=== PATIENT | male | born 1950 | race Caucasian/White ===

== ENCOUNTER 2024-02-26 10:41 | Emergency (ER) | payer MEDICARE, OTHER ==
[2024-02-26] MEDS ORDERED: Tranexamic Acid 1,000 MG/10 ML VIAL ONE (11:09)
== END 2024-02-26 12:29 | disposition home or self-care (01) ==
LOC: NAV ERS 10:41
DX: K91.840 Postprocedural hemorrhage of a digestive system organ or structure following a digestive system procedure (principal)
CPT/HCPCS: 99283